=== PATIENT | female | born 1960 | race Caucasian/White ===

== ENCOUNTER → 2019-02-20 | Outpatient (CLI) | payer OTHER ==
[2016-08-25 13:30] VITALS: BP 153/91
[~2019-02-20] MED LIST: ALBU2.5V8 INH; DEXT236S PO; ERYT1OIN6 EACHEYE; PRED50TA PO
[2019-02-20] MEDS: ALBUTEROL SULFATE 2.5 MG/3 ML NEBU. NEB ONE (10:30)
--- NOTE | 2019-02-20 17:11 | RAD ---
2 view study lumbar spine Clinical indications: Back pain for years. Disability determination. FINDINGS: The transverse processes are intact. No significant scoliotic curvature is evident. 4 lumbar type vertebrae are evident with sacralization of L5. No compression fracture or discitis or lytic process or anterolisthesis is evident. Mild degenerative endplate spurring throughout the lumbar spine. IMPRESSION: Mild degenerative lumbar spondylosis. Electronically signed by: Andrew Arroyo MD (02/20/2019 5:09 PM) [email or web address]
--- NOTE | 2019-02-20 17:12 | RAD ---
Examination: 2 views of the left knee HISTORY: History of left knee pain COMPARISON: 06/08/2016 Findings/ impression: Moderate joint space loss identified in the medial, lateral, patellofemoral compartments with small osteophyte formation likely moderate tricompartmental degenerative changes slightly increased since prior exam. Electronically signed by: Juan Carlos Rao MD (02/20/2019 5:09 PM) [id number]
== END | disposition home or self-care (01) ==
LOC: PF 09:45
PROVIDERS: ATTEND Surgery
DX: M47.816 Spondylosis without myelopathy or radiculopathy, lumbar region (principal); M46.06 Spinal enthesopathy, lumbar region; M25.762 Osteophyte, left knee; J45.909 Unspecified asthma, uncomplicated; Z87.891 Personal history of nicotine dependence
CPT/HCPCS: 72100; 73560; 94060; 94640; J7613

== ENCOUNTER 2020-05-21 16:22 | Emergency (ER) | payer MEDICAID, OTHER ==
[~2020-05-21] VITALS: Ht 157.5 cm; Wt 118.0 kg
--- NOTE | 2020-05-21 16:36 | PHYS DOC ---
Past Medical History Past Medical History: Asthma, Diabetes-Type II, GERD, Hypertension Additional Past Medical Histor: LEFT KNEE MENISCUS TEAR, LEFT SHOULDER SURGERY Past Surgical History: Cholecystectomy, Hysterectomy, Tonsillectomy, Tubal ligation Smoking Status: Never Smoker Alcohol Use: Rarely Drug Use: None General Adult EDM: Chief Complaint: LOWER EXTREMITY EDEMA HPI: HPI: 59-year-old female with history of hypertension, diabetes mellitus, asthma, GERD, who presents for evaluation of 2 months of gradually worsening wounds of the bilateral lower extremities, more so in the posterior distal legs. The patient developed some increasing lower extremity edema about 2 months ago, though this actually more or less resolved. She now states that the associated wounds are increasingly painful, causing difficulty with sleep. No fever, chills, nausea, vomiting, chest pain, dyspnea, abdominal pain, nausea, vomiting. Review of Systems: Review of Systems: Gen: No fever, chills. Eyes: No blurred vision, diplopia. ENT: No nasal congestion, sore throat. CV: No CP, palpitations. Resp. No SOB, cough. GI: No abd pain, N/V. : No dysuria, hematuria. Neuro: No KRUEGER, dizziness, weakness. MSK: No back pain. Skin: Reports painful lower extremity wounds. Heart Score: Risk Factors: Risk Factors: DM, Current or recent (<one month) smoker, HTN, HLP, family history of CAD, obesity. Risk Scores: Score 0 - 3: 2.5% MACE over next 6 weeks - Discharge Home Score 4 - 6: 20.3% MACE over next 6 weeks - Admit for Clinical Observation Score 7 - 10: 72.7% MACE over next 6 weeks - Early Invasive Strategies Allergies: Allergies: Allergies Coded Allergies Type Severity Reaction Last Updated Verified Penicillins Allergy Intermediate 08/25/16 Yes Sulfa (Sulfonamide Antibiotics) Allergy Intermediate 08/25/16 Yes acetaminophen Allergy Intermediate 08/25/16 Yes codeine Allergy Intermediate 08/25/16 Yes iron Adverse Reaction Severe Nausea 02/20/19 Yes Physical Exam: PE: Gen: NAD. Head: NC/AT. Eyes: No scleral icterus. No conjunctival injection. ENT: MMM. Posterior OP clear. Neck: Supple. NT. CV: RRR. Peripheral pulses intact. Resp: CTAB. Abd: Soft. NT. ND. MSK: No peripheral cyanosis. No edema. Neuro: A&Ox3. Strength & sensation grossly intact throughout. No calf asymmetry. Skin. Warm. Dry. Mildly erythematous scattered wounds/ulcerations of the bilateral distal lower extremities, more so in the posterior aspect; no fluctuance or induration. Psych: Appropriate mood & affect. Current Patient Data: Labs: Laboratory Tests Test 05/21/20 16:43 White Blood Count 9.9 x10^3/uL (4.0-11.0) Red Blood Count 3.43 x10^6/uL (3.50-5.40) Hemoglobin 10.0 g/dL (12.0-15.5) Hematocrit 29.6 % (36.0-47.0) Mean Corpuscular Volume 86 fL (79-100) Mean Corpuscular Hemoglobin 29 pg (25-35) Mean Corpuscular Hemoglobin Concent 34 g/dL (31-37) Red Cell Distribution Width 13.9 % (11.5-14.5) Platelet Count 288 x10^3/uL (140-400) Neutrophils (%) (Auto) 81 % (31-73) Lymphocytes (%) (Auto) 10 % (24-48) Monocytes (%) (Auto) 7 % (0-9) Eosinophils (%) (Auto) 3 % (0-3) Basophils (%) (Auto) 0 % (0-3) Neutrophils # (Auto) 7.9 x10^3/uL (1.8-7.7) Lymphocytes # (Auto) 0.9 x10^3/uL (1.0-4.8) Monocytes # (Auto) 0.7 x10^3/uL (0.0-1.1) Eosinophils # (Auto) 0.3 x10^3/uL (0.0-0.7) Basophils # (Auto) 0.0 x10^3/uL (0.0-0.2) Sodium Level 139 mmol/L (136-145) Chloride Level 103 mmol/L (98-107) Carbon Dioxide Level 28 mmol/L (21-32) Anion Gap 8 (6-14) Blood Urea Nitrogen 10 mg/dL (7-20) Estimated GFR (Cockcroft-Gault) 73.9 Glucose Level 189 mg/dL (70-99) Calcium Level 8.6 mg/dL (8.5-10.1) Troponin I Quantitative < 0.017 ng/mL (0.000-0.055) Vital Signs: Vital Signs Date Time Temp Pulse Resp B/P (MAP) Pulse Ox O2 Delivery O2 Flow Rate FiO2 05/21/20 16:25 98.2 95 20 135/82 (99) 100 Room Air 98.2 EKG: EKG: [] Radiology/Procedures: Radiology/Procedures: [] Course & Med Decision Making: Course & Med Decision Making Pertinent Labs and Imaging studies reviewed. (See chart for details) In summary, 59-year-old female who presents for evaluation of ongoing lower extremity ulcerations, now surrounding erythema. No systemic symptoms. No calf asymmetry concerning for DVT. Lab work is largely unrevealing. Distal extremities are warm and well-perfused. No clinical suspicion for acute arterial occlusion. Will be treated for cellulitis with clindamycin and topical mupirocin. [place] as needed for pain. Outpatient wound clinic follow-up. Return precautions given. Consideration for possibility of pyoderma gangrenosum. Dragon Disclaimer: Dania Disclaimer: This electronic medical record was generated, in whole or in part, using a voice recognition dictation system. Departure Departure Impression: Primary Impression: Lower extremity ulceration Additional Impression: Cellulitis Disposition: 01 HOME, SELF-CARE Condition: STABLE Referrals: NO PCP (PCP) GRETCHEN RODRIGUEZ DO Patient Instructions: Cellulitis, [id number] Additional Instructions: Please follow up with the above wound care physician by calling the number listed. Take the prescribed antibiotic pills and ointment. Scripts Hydrocodone/Apap 5-325 (NORCO 5-325 TABLET) 1 Each Tablet 1 TAB PO PRN Q8HRS PRN for PAIN, #10 TAB 0 Refills Prov: BRANDON AGUILAR H DO 05/21/20 Mupirocin (MUPIROCIN OINTMENT) 22 Gm Oint...g. 1 MARITZA TP TID for WOUND CARE, #1 TUBE Prov: BRANDON AGUILAR H DO 05/21/20 Clindamycin Hcl (CLINDAMYCIN HCL) 300 Mg Capsule 300 MG PO QID for 7 Days, #28 CAP Prov: LE,BRANDON H DO 05/21/20 Justicifation of Admission Dx: Justifications for Admission: Justification of Admission Dx: N/A BRANDON AGUILAR DO May 21, 2020 16:35
[2020-05-21 16:55] LABS: BASO % 0 % (0-3); EOS # 0.3 x10^3/uL (0.0-0.7); EOS % 3 % (0-3); HEMATOCRIT 29.6 % (36.0-47.0); LYMPH # 0.9 x10^3/uL (1.0-4.8); LYMPH % 10 % (24-48); MEAN CORPUSCULAR HEMOGLOBIN 29 pg (25-35); MEAN CORPUSCULAR HGB CONC 34 g/dL (31-37); MEAN CORPUSCULAR VOLUME 86 fL (79-100); MONO # 0.7 x10^3/uL (0.0-1.1); MONO % 7 % (0-9); NEUT # 7.9 x10^3/uL (1.8-7.7); NEUT % 81 % (31-73); PLATELET COUNT 288 x10^3/uL (140-400); RED BLOOD COUNT 3.43 x10^6/uL (3.50-5.40); RED CELL DISTRIBUTION WIDTH 13.9 % (11.5-14.5); WHITE BLOOD COUNT 9.9 x10^3/uL (4.0-11.0)
[2020-05-21] MEDS ORDERED: CLINDAMYCIN 600MG PREMIX 50 ML IV ONE (17:00)
[2020-05-21 17:05] LABS: CALCIUM 8.6 mg/dL (8.5-10.1); CREATININE 0.8 mg/dL (0.6-1.0); GFR 73.9; MAGNESIUM 1.9 mg/dL (1.8-2.4); POTASSIUM 3.9 mmol/L (3.5-5.1)
[2020-05-21] MEDS ORDERED: MUPIROCIN 2 % TOPICAL CREAM 30GM TUBE. TP ONE (17:15)
--- NOTE | 2020-05-21 17:36 | EKG ---
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
[2020-05-21] MEDS ORDERED: MUPI22OI2 TP (17:56)
[2020-05-21] MEDS ORDERED: HYDR-3164 PO (17:56)
[2020-05-21] MEDS ORDERED: CLIN300C8 PO (17:56)
[2020-05-21 18:00] VITALS: BP 169/91
== END 2020-05-21 18:59 | disposition home or self-care (01) ==
LOC: ER 16:22
DX: L97.829 Non-pressure chronic ulcer of other part of left lower leg with unspecified severity (principal); L97.819 Non-pressure chronic ulcer of other part of right lower leg with unspecified severity; R60.0 Localized edema; L53.9 Erythematous condition, unspecified; L03.116 Cellulitis of left lower limb; L03.115 Cellulitis of right lower limb; E11.621 Type 2 diabetes mellitus with foot ulcer; J45.909 Unspecified asthma, uncomplicated; E11.9 Type 2 diabetes mellitus without complications; K21.9 Gastro-esophageal reflux disease without esophagitis; I10 Essential (primary) hypertension; Z90.710 Acquired absence of both cervix and uterus; Z90.49 Acquired absence of other specified parts of digestive tract; Z98.51 Tubal ligation status; Z88.0 Allergy status to penicillin; Z88.2 Allergy status to sulfonamides; Z88.5 Allergy status to narcotic agent; Z88.8 Allergy status to other drugs, medicaments and biological substances
CPT/HCPCS: 36415; 80048; 83735; 83880; 84484; 85025; 93005; 96365; 99284; J3490